=== PATIENT | female | born 2000 | race Caucasian/White ===

== ENCOUNTER 2021-03-01 12:18 | Emergency (ER) | payer OTHER ==
[~2021-03-01] VITALS: Ht 154.9 cm; Wt 54.9 kg
--- NOTE | 2021-03-02 00:46 | EKG ---
[facility] [address] [place], [place] [address] Signed Normal sinus rhythm Normal ECG No previous ECGs available Confirmed by KARYNA BAIN MD ([id number]) on 03/02/2021 12:46:32 AM Electronically Signed By: KARYNA BAIN MD 03/02/21 0046 PATIENT NAME: GIOVANNY GEORGES Electrocardiogram DATE OF : [birth year] PHYSICIAN: KARYNA BAIN MD REPORT #: [id number] REPORT IS CONFIDENTIAL AND NOT TO BE RELEASED WITHOUT AUTHORIZATION
--- NOTE | 2021-03-22 15:13 | NUR ---
Notifyed Elen Merrill and Anthony Bennett on MD notification for AV Block (2nd)
== END 2021-03-01 17:39 | disposition home or self-care (01) ==
LOC: ED 12:18
DX: R42 Dizziness and giddiness (principal)
CPT/HCPCS: 80053; 81001; 83735; 84443; 84703; 85025; 93005; 93010; 99284-25